=== PATIENT | male | born 1940 | race Hispanic/Latino ===

== ENCOUNTER 2022-07-10 00:28 | Observation (INO) | payer OTHER ==
--- OUTSIDE RECORDS SUMMARY | 2022-07-10 00:32 | XMS REPORT | Continuity of Care Document ---
:1940 Author Organization [facility] t Address [address] [place] [address] Care Team Providers Name Role Phone Sammy Schwartz Attending Clinician Unavailable Parvez Blackburn Attending Clinician Unavailable Payers Payer Name Policy Type Policy Number Effective Date Expiration Date S ten [facility] [employer] 1 [id number] 2020 Common TRS/ERS MCR PPO 00:00:00 [facility] - [facility] Problems Condition Condition Condition Status Onset Resolution Last Treating Co mments Source Name Details Category Date Date Treatment Clinician Date [id number] Paroxysmal Problem Co mmon atrial Spirit fibrillati - [facility] on [facility] [id number] 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 unspecifie St d cause, [facility] unspecifie [facility] laterality [id number] Upper back Problem Co mmon pain on [facility] right side [facility] [id number] Neck pain Problem Comm on [facility] Fall, Problem Common initial [facility] encounter [facility] Allergies, Adverse Reactions, Alerts This patient has no known allergies or adverse reactions. Social History Social Habit Start Date Stop Date Quantity Comments Source History of Tobacco Use Co mmon [facility] Sex Assigned At Com mon [facility] Smoking Status Start Date Stop Date Source Never Smoker Common [facility] Medications Ordered Filled Start Stop Current Ordering Indication Dosage Frequency Signature Comments Components Source Medication Medication Date Date Medication? Clinician (SIG) Name Name Toradol Toradol No 30mg Common (Ketorolac) (Ketorolac) 5-07 S pirit 00:00: - [facility] Toradol Toradol No 30mg Common (Ketorolac) (Ketorolac) 5-07 S pirit 00:: [facility] Toradol Toradol No 30mg Common (Ketorolac) (Ketorolac) 5-07 S pirit 00:00: - [facility] Francine Aleamaury No Aleve QUEtiapine QUEtiapine No QUEtiapine Fumarate 25 Fumarate 25 Fumarate MG MG 25 MG Metoprolol Metoprolol No Metoprolol Tartrate 25 Tartrate 25 Tartrate MG MG 25 MG Allopurinol Allopurinol No Allopurino 100 MG 100 MG l 100 MG Metoprolol Metoprolol No 1{table BID Metoprolol Tartrate 25 Tartrate 25 t_with_ Tartrate MG MG food} 25 MG Omeprazole Omeprazole No QD Omeprazole 40 MG 40 MG 40 MG Centrum Centrum No Centrum Silver Silver Silver Metoprolol Metoprolol No 1{table QD Metoprolol Succinate Succinate t} Succinate ER 25 MG ER 25 MG ER 25 MG Amiodarone Amiodarone No 1{table QD Amiodarone HCl 200 MG HCl 200 MG t} HCl 200 MG Aleve Aleve No Aleve QUEtiapine QUEtiapine No 1{table QD QUEtiapine Fumarate 25 Fumarate 25 t_at_be Fumarate MG MG dtime} 25 MG Allopurinol Allopurinol No 1{table QD Allopurino 100 MG 100 MG t} l 100 MG Atorvastati Atorvastati No 1{table QD Atorvastat n Calcium n Calcium t} in Calcium 20 MG 20 MG 20 MG Omeprazole Omeprazole No QD Omeprazole 40 MG 40 MG 40 MG Centrum Centrum No Centrum Silver Silver Silver Metoprolol Metoprolol No 1{table QD Metoprolol Succinate Succinate t} Succinate ER 25 MG ER 25 MG ER 25 MG Amiodarone Amiodarone No 1{table QD Amiodarone HCl 200 MG HCl 200 MG t} HCl 200 MG Aleve Aleve No Aleve QUEtiapine QUEtiapine No 1{table QD QUEtiapine Fumarate 25 Fumarate 25 t_at_be Fumarate MG MG dtime} 25 MG Allopurinol Allopurinol No 1{table QD Allopurino 100 MG 100 MG t} l 100 MG Atorvastati Atorvastati No 1{table QD Atorvastat n Calcium n Calcium t} in Calcium 20 MG 20 MG 20 MG Metoprolol Metoprolol No 1{table BID Metoprolol Tartrate 25 Tartrate 25 t_with_ Tartrate MG MG food} 25 MG QUEtiapine QUEtiapine No 1{table QD QUEtiapine Fumarate 25 Fumarate 25 t_at_be Fumarate MG MG dtime} 25 MG QUEtiapine QUEtiapine No QUEtiapine Fumarate 25 Fumarate 25 Fumarate MG MG 25 MG Allopurinol Allopurinol No Allopurino 100 MG 100 MG l 100 MG Metoprolol Metoprolol No Metoprolol Tartrate 25 Tartrate 25 Tartrate MG MG 25 MG Lisinopril Lisinopril No 1{table QD Lisinopril 10 MG 10 MG t} 10 MG Aleve Aleve No Aleve Lovastatin Lovastatin No Lovastatin 20 MG 20 MG 20 MG Lovastatin Lovastatin No QD Lovastatin 20 MG 20 MG 20 MG Lisinopril Lisinopril No Lisinopril 10 MG 10 MG 10 MG Centrum Centrum No Centrum Silver Silver Silver Allopurinol Allopurinol No 1{table QD Allopurino 100 MG 100 MG t} l 100 MG Aspirin 81 Aspirin 81 No 1{table QD Aspirin 81 81 MG 81 MG t} 81 MG Metoprolol Metoprolol No 1{table BID Metoprolol Tartrate 25 Tartrate 25 t_with_ Tartrate MG MG food} 25 MG QUEtiapine QUEtiapine No 1{table QD QUEtiapine Fumarate 25 Fumarate 25 t_at_be Fumarate MG MG dtime} 25 MG QUEtiapine QUEtiapine No QUEtiapine Fumarate 25 Fumarate 25 Fumarate MG MG 25 MG Allopurinol Allopurinol No Allopurino 100 MG 100 MG l 100 MG Metoprolol Metoprolol No Metoprolol Tartrate 25 Tartrate 25 Tartrate MG MG 25 MG Lisinopril Lisinopril No 1{table QD Lisinopril 10 MG 10 MG t} 10 MG Aleve Aleve No Aleve Lovastatin Lovastatin No Lovastatin 20 MG 20 MG 20 MG Lovastatin Lovastatin No QD Lovastatin 20 MG 20 MG 20 MG Lisinopril Lisinopril No Lisinopril 10 MG 10 MG 10 MG Centrum Centrum No Centrum Silver Silver Silver Allopurinol Allopurinol No 1{table QD Allopurino 100 MG 100 MG t} l 100 MG Aspirin 81 Aspirin 81 No 1{table QD Aspirin 81 81 MG 81 MG t} 81 MG Lovastatin Lovastatin No Lovastatin 20 MG 20 MG 20 MG Centrum Centrum No Centrum Silver Silver Silver Allopurinol Allopurinol No 1{table QD Allopurino 100 MG 100 MG t} l 100 MG Lisinopril Lisinopril No Lisinopril 10 MG 10 MG 10 MG Aspirin 81 Aspirin 81 No 1{table QD Aspirin 81 81 MG 81 MG t} 81 MG QUEtiapine QUEtiapine No 1{table QD QUEtiapine Fumarate 25 Fumarate 25 t_at_be Fumarate MG MG dtime} 25 MG Eliquis 2.5 Eliquis 2.5 2022- No Eliquis mg 2.5 mg mg 2.5 mg 07-05 2.5 mg 2.5 00:00 mg :00 Eliquis 2.5 Eliquis 2.5 2022- No Eliquis mg 2.5 mg mg 2.5 mg 07-05 2.5 mg 2.5 00:00 mg :00 Vital Signs Vital Name Observation Time Observation Value Comments Source height 2022-04-06 13:00:00 68 [in_i] Common S pirit - [facility] weight 2022-04-06 13:00:00 166.8 [lb_av] Common [facility] temperature 2022-04-06 13:00:00 97.7 [degF] Common [facility] bmi 2022-04-06 13:00:00 25.36 kg/m2 Common [facility] oximetry 2022-04-06 13:00:00 96 % Common [facility] respiratory rate 2022-04-06 13:00:00 16 /min Comm on [facility] blood pressure 2022-04-06 13:00:00 135 mm[Hg] Common [facility] - systolic [facility] blood pressure 2022-04-06 13:00:00 72 mm[Hg] Common [facility] - diastolic [facility] height 2021-07-30 13:40:00 68 [in_i] Common [facility] weight 2021-07-30 13:40:00 173.0 [lb_av] [facility] temperature 2021-07-30 13:40:00 97.5 [degF] Common [facility] bmi 2021-07-30 13:40:00 26.3 kg/m2 [facility] oximetry 2021-07-30 13:40:00 98 % [facility] respiratory rate 2021-07-30 13:40:00 17 /min Comm on [facility] blood pressure 2021-07-30 13:40:00 138 mm[Hg] Common [facility] - systolic [facility] blood pressure 2021-07-30 13:40:00 63 mm[Hg] Common [facility] - diastolic [facility] height 2021-07-30 13:00:00 68 [in_i] [facility] weight 2021-07-30 13:00:00 173.0 [lb_av] [facility] temperature 2021-07-30 13:00:00 97.5 [degF] [facility] 2021-07-30 13:00:00 26.3 kg/m2 Common S [facility] oximetry 2021-07-30 13:00:00 98 % Common S [facility] respiratory rate 2021-07-30 13:00:00 17 /min Comm on [facility] blood pressure 2021-07-30 13:00:00 138 mm[Hg] Common [facility] - systolic [facility] blood pressure 2021-07-30 13:00:00 63 mm[Hg] Common [facility] - diastolic [facility] Procedures This patient has no known procedures. Encounters Start End Encounter Admission Attending Care Care Encounter Source Date/Time Date/Time Type Type Clinicians Facility Department ID 2022-07-27 Inpatient MARLA Schwartz [id number] [facility] 09:30:00 Sammy 20 [facility] 2021-07-30 Outpatient Blackburn, STLMLC STLMLC [id number] Common 14:39:19 Parvez [facility] 2021-07-30 Outpatient Blackburn, STLMLC STLMLC [id number] Common 13:45:10 Parvez [id number] [facility] 2021-07-30 Outpatient Blackburn, STLMLC STLMLC [id number] Common 13:11:28 Parvez [id number] [facility] 2021-07-30 Outpatient Blackburn, STLMLC STLMLC [id number] Common 13:06:53 Parvez [id number] [facility] 2021-07-30 Outpatient Blackburn, STLMLC STLMLC [id number] Common 13:03:19 Parvez [id number] [facility] 2021-07-30 Outpatient Blackburn, STLMLC STLMLC [id number] Common 13:02:01 Parvez [facility] 2021-07-30 Outpatient Blackburn, STLMLC STLMLC [id number] Common 12:37:52 Parvez [id number] [facility] 2021-07-30 Outpatient Blackburn, STLMLC STLMLC [id number] Common 12:36:44 Parvez [id number] [facility] 2021-07-30 Outpatient Blackburn, STLMLC STLMLC [id number] Common 12:29:41 Parvez [id number] [facility] 2021-07-30 Outpatient Blackburn, STLMLC STLMLC [id number] Common 12:29:32 Parvez [id number] [facility] 2022-04-06 2022-04-06 OFFICE STLMLC STLMLC [id number] Co mmon 00:00:00 00:00:00 VISIT [facility] PT - [facility]I [address] 2022-03-02 2022-03-02 (TEL) STLMLC STLMLC [id number] Co mmon 00:00:00 00:00:00 [facility] 2021-07-30 2021-07-30 OFFICE STLMLC STLMLC [id number] Co mmon 00:00:00 00:00:00 VISIT [facility] PT - [facility]I [address] 2021-07-30 2021-07-30 SUB ANNUAL STLMLC STLMLC [id number] Common 00:00:00 00:00:00 MCR [facility] WELLNESS [facility] VISIT [facility] 2021-03-12 2021-03-12 Outpatient STLMLC STLMLC [id number] Common 00:00:00 00:00:00 [facility] 2020-12-10 2020-12-10 Outpatient STLMLC STLMLC [id number] Common 00:00:00 00:00:00 [facility] 2020-11-21 2020-11-21 Outpatient STLMLC STLMLC [id number] Common 00:00:00 00:00:00 [facility] 2020-11-08 2020-11-08 Outpatient STLMLC STLMLC [id number] Common 00:00:00 00:00:00 [facility] 2020-09-10 2020-09-10 Outpatient STLMLC STLMLC [id number] Common 00:00:00 00:00:00 [facility] 2020-09-10 2020-09-10 Outpatient STLMLC STLMLC [id number] Common 00:00:00 00:00:00 [facility] 2020-08-12 2020-08-12 Outpatient [facility] [id number] Common 00:00:00 00:00:00 [facility] Results This patient has no known results.
[2022-07-10] MEDS ORDERED: NA CHLORIDE 0.9% 500 ML ONE ×2 (00:54→01:57)
[2022-07-10 01:08] LABS: Hematocrit 37.9 % (39.6-49.0); Lymphocytes % 11.8 % (15.3-44.8); MCV 90.5 fL (80-100); MPV 8.3 fL (7.6-11.3); RBC Red Blood Cell Count 4.19 M/uL (4.33-5.43)
[2022-07-10 01:17] LABS: Protime INR 1.51
[2022-07-10 01:25] LABS: Potassium 3.5 mmol/L (3.5-5.1)
[2022-07-10] MEDS ORDERED: ASPIRIN 81 MG CHEWABLE TABLET ONE (01:42)
[2022-07-10] MEDS ORDERED: MECLIZINE HCL 12.5 MG TAB ONE (01:42)
[2022-07-10] MEDS ORDERED: FOLIC ACID 5 MG/ML VIAL ONE (01:43)
[2022-07-10 02:11] LABS: SARS-CoV-2 Antigen Rapid Res Negative (Negative)
--- NOTE | 2022-07-10 02:45 | ER ---
Nurse's Notes [facility] Name: Adam Stanford Age: 82 yrs Sex: Male : 1940 Arrival Date: 07/10/2022 Time: 00:32 Bed 2 Private MD: Diagnosis: Dizziness and giddiness;Slurred speech Presentation: 07/10 00:30 Chief complaint: EMS states: Pt has had a history of a stroke and had gotten up to go kd3 to the bathroom. When he was in the restroom he got dizzy and because of his previous stroke, he ot nervous and called 911. Pt has facial droop and slurred speech from a previous stroke. 00:30 Coronavirus screen: Vaccine status: Patient reports receiving the 2nd dose of the covid kd3 vaccine. Ebola Screen: No symptoms or risks identified at this time. Initial Sepsis Screen: Does the patient meet any 2 criteria? No. Patient's initial sepsis screen is negative. Does the patient have a suspected source of infection? No. Patient's initial sepsis screen is negative. Risk Assessment: Do you want to hurt yourself or someone else? Patient reports no desire to harm self or others. Onset of symptoms was July 10, 2022. 00:30 Method Of Arrival: EMS: [facility] kd3 00:30 Acuity: DIMITRI 3 kd3 Triage Assessment: 00:30 General: Appears in no apparent distress. Behavior is calm, cooperative. Pain: Denies kd3 pain. Neuro: Level of Consciousness is awake, alert, obeys commands, Oriented to person, place, time, situation. Respiratory: Airway is patent Trachea midline Respiratory effort is even, unlabored, Respiratory pattern is regular, symmetrical. Historical: - PMHx: 10:42 CVA; AFIB; HTN; hb - PSHx: 10:42 CABG; hb - Immunization history:: Adult Immunizations up to date. - Social history:: Smoking status: unknown. Screenin:32 [facility] ED Fall Risk Assessment (Adult) History of falling in the last 3 months, kd3 including since admission No falls in past 3 months (0 pts) Confusion or Disorientation No (0 pts) Intoxicated or Sedated No (0 pts) Impaired Gait No (0 pts) Mobility Assist Device Used No (0 pt) Altered Elimination No (0 pt) Score/Fall Risk Level 0 - 2 = Low Risk. Abuse screen: Denies threats or abuse. Denies injuries from another. Nutritional screening: No deficits noted. Tuberculosis screening: No symptoms or risk factors identified. 00:58 Patient has been NPO before screening. The patient is alert, able to follow commands. jb4 The patient does not exhibit slurred or garbled speech The patient is not exhibiting difficulty speaking. The patient does not exhibit difficulty understanding words. The patient is able to swallow own secretions with no drooling or need for suction. Patient tolerated one teaspoon of water. No drooling, immediate coughing, gurgling, or clearing of the throat was noted. The patient tolerated 90mL of water. No drooling, immediate coughing, gurgling, or clearing of the throat was noted. The patient passed the bedside swallow screening. Oral medications may be given as ordered. Contact Physician for further diet orders. Provider notified of bedside swallow screening results: Jonathan VALDES. Assessment: 00:40 General: see triage . kd3 00:41 General: code stroke called . kd3 01:24 Reassessment: Patient appears in no apparent distress at this time. Patient and/or jb4 family updated on plan of care and expected duration. Pain level reassessed. Patient is alert, oriented x 3, equal unlabored respirations, skin warm/dry/pink. provider at the bedside. 02:29 Reassessment: Patient appears in no apparent distress at this time. Patient and/or jb4 family updated on plan of care and expected duration. Pain level reassessed. Patient is alert, oriented x 3, equal unlabored respirations, skin warm/dry/pink. 03:30 Reassessment: Patient appears in no apparent distress at this time. Patient and/or jb4 family updated on plan of care and expected duration. Pain level reassessed. Patient is alert, oriented x 3, equal unlabored respirations, skin warm/dry/pink. Vital Signs: 00:30 BP 124 / 49; Pulse 53; Resp 18; Temp 98.5(TE); Pulse Ox 96% on R/A; Weight 79.83 kg (M);kd3 01:24 BP 106 / 57; Pulse 44; Resp 16; Pulse Ox 98% on R/A; jb4 02:29 BP 102 / 41; Pulse 48; Resp 16; Pulse Ox 97% on R/A; jb4 03:30 BP 132 / 55; Pulse 44; Resp 16; Pulse Ox 96% on R/A; jb4 NIH Stroke Scale Scores: 00:32 NIHSS Score: 0 kd3 01:29 NIHSS Score: 3 cp ED Course: 00:30 Arm band placed on right wrist. kd3 00:32 Patient arrived in ED. wm 00:33 Breanne Carrera, BERTA is Primary Nurse. kd3 00:36 Jonathan Kumari PA is PHCP. cp 00:36 Linda Amin MD is Attending Physician. cp 00:38 Triage completed. kd3 00:40 Patient has correct armband on for positive identification. Placed in gown. Call light kd3 in reach. 00:40 No provider procedures requiring assistance completed. Maintain EMS IV. Dressing kd3 intact. Good blood return noted. Site clean \T\ dry. Gauge \T\ site: 18 g left A/C. 00:53 CT Stroke Brain w/o Contrast In Process Unspecified. EDMS 00:59 Basic Metabolic Panel Sent. kd3 00:59 CBC with Diff Sent. kd3 00:59 High Sensitivity Troponin Sent. kd3 00:59 Magnesium Sent. kd3 00:59 Protime (+inr) Sent. kd3 00:59 Ptt, Activated Sent. kd3 01:03 Stroke CXR 1 View In Process Unspecified. EDMS 02:08 CT Head Angio In Process Unspecified. EDMS 02:08 CT Neck Angio In Process Unspecified. EDMS 02:43 Efren Hameed MD is Hospitalizing Provider. cp 04:22 Patient admitted, IV remains in place. jb4 Administered Medications: 00:55 Drug: NS 0.9% 500 ml Route: IV; Rate: 250 bolus; Site: left antecubital; jb4 04:00 Follow up: Response: No adverse reaction; IV Status: Completed infusion; IV Intake: jb4 500ml 01:45 Drug: Aspirin Chewable Tablet 81 mg Route: PO; jb4 04:20 Follow up: Response: No adverse reaction jb4 01:45 Drug: foLIC Acid 1 mg Route: IVPB; Site: left antecubital; jb4 02:00 Follow up: Response: No adverse reaction; IV Status: Completed infusion jb4 01:45 Drug: Meclizine 25 mg Route: PO; jb4 04:21 Follow up: Response: No adverse reaction; Marked relief of symptoms jb4 02:19 Drug: NS 0.9% 500 ml Route: IV; Rate: bolus; Site: left antecubital; jb4 03:00 Follow up: Response: No adverse reaction; IV Status: Completed infusion; IV Intake: jb4 500ml Medication: 00:40 VIS not applicable for this client. kd3 Intake: 03:00 IV: 500ml; Total: 500ml. jb4 04:00 IV: 500ml; Total: 1000ml. jb4 Outcome: 02:44 Decision to Hospitalize by Provider. cp 04:22 Admitted to ER Hold. [facility] for further documentation. jb4 04:22 Condition: stable 04:22 Discharge instructions given to patient, Instructed on the need for admit, Demonstrated understanding of instructions. 13:55 Patient left the ED. ph NIH Stroke Scale - NIH Stroke Score Date: 07/10/2022 Time: 00:32 Total Score = 0 1a. Level of Consciousness (LOC) - 0(Alert) 1b. Level of Consciousness (LOC) (Month \T\ Age) - 0(Both) 1c. LOC Commands (Open \T\ Closes Eyes/Art Objects Salesperson) - 0(Both) 2. Best Gaze (Lateral Gaze Paresis) - 0(Normal) 3. Visual Field Loss - 0(No visual loss) 4. Facial Palsy - 0(Normal) 5a. Left Arm: Motor (10-second hold) - 0(No drift) 5b. Right Arm: Motor (10-second hold) - 0(No drift) 6a. Left Leg: Motor (5-second hold - always test supine) - 0(No drift) 6b. Right Leg: Motor (5-second hold - always test supine) - 0(No drift) 7. Limb Ataxia (finger/nose \T\ heel/bains - test with eyes open) - 0(Absent) 8. Sensory Loss (pinprick arms/legs/face) - 0(Normal) 9. Best Language: Aphasia (description/naming/reading) - 0(No aphasia) 10. Dysarthria (speech clarity - read or repeat words) - 0(Normal) 11. Extinction and Inattention (visual/tactile/auditory/spatial/personal) - 0(No abnormality) Initials: kd3 NIH Stroke Scale - NIH Stroke Score Date: 07/10/2022 Time: :29 Total Score = 3 1a. Level of Consciousness (LOC) - 0(Alert) 1b. Level of Consciousness (LOC) (Month \T\ Age) - 0(Both) 1c. LOC Commands (Open \T\ Closes Eyes/Art Objects Salesperson) - 0(Both) 2. Best Gaze (Lateral Gaze Paresis) - 0(Normal) 3. Visual Field Loss - 0(No visual loss) 4. Facial Palsy - 1(Minor Paralysis) 5a. Left Arm: Motor (10-second hold) - 0(No drift) 5b. Right Arm: Motor (10-second hold) - 0(No drift) 6a. Left Leg: Motor (5-second hold - always test supine) - 0(No drift) 6b. Right Leg: Motor (5-second hold - always test supine) - 0(No drift) 7. Limb Ataxia (finger/nose \T\ heel/bains - test with eyes open) - 0(Absent) 8. Sensory Loss (pinprick arms/legs/face) - 0(Normal) 9. Best Language: Aphasia (description/naming/reading) - 1(Mild to moderate aphasia) 10. Dysarthria (speech clarity - read or repeat words) - 1(Mild to Moderate) 11. Extinction and Inattention (visual/tactile/auditory/spatial/personal) - 0(No abnormality) Initials: cp Signatures: Dispatcher [employer] Sneha Rooney RN RN ph Page, Corey, PA PA cp Irene Bellamy RN RN hb Bryson, James, RN RN jb4 Tammie Claros Kyli, RN RN kd3 Corrections: (The following items were deleted from the chart) 10:43 10:42 PSHx: CVA - LEFT FACIAL WEAKNESS; hb hb
--- NOTE | 2022-07-10 02:45 | EDPHYS ---
Physician Documentation [facility] Name: Adam Stanford Age: 82 yrs Sex: Male : 1940 Arrival Date: 07/10/2022 Time: 00:32 Bed 2 Private MD: ED Physician Linda Amin HPI: 07/10 00:45 This 82 yrs old Male presents to ER via EMS with complaints of Dizziness. cp 00:45 The patient presents with feeling off balance. Onset: The symptoms/episode cp began/occurred tonight at 2330. 00:45 The patient's problem is reported as slurred speech. cp 00:45 Duration: The episode is continuous. Associated signs and symptoms: Pertinent cp negatives: abdominal pain, chest pain, confusion, fever. Patient's baseline: Neuro: alert and fully oriented, Motor: left-sided facial droop, Ambulation: walks without assistance, Speech: slow, The patient has a previous history of CVA. Patient reports dizziness and unsteadiness started at 2330 tonight. Historical: - PMHx: 10:42 CVA; AFIB; HTN; hb - PSHx: 10:42 CABG; hb - Immunization history:: Adult Immunizations up to date. - Social history:: Smoking status: unknown. ROS: 00:46 Cardiovascular: Negative for chest pain, edema, palpitations. cp 00:46 Respiratory: Negative for cough, shortness of breath, wheezing. 00:46 Neuro: Positive for dizziness, speech changes, Negative for altered mental status, loss of consciousness, syncope, weakness. 00:46 Constitutional: Negative for body aches, chills, fever, poor PO intake. cp 00:46 ENT: Negative for drainage from ear(s), ear pain, sore throat, difficulty swallowing, difficulty handling secretions. 00:46 Abdomen/GI: Negative for abdominal pain, nausea and vomiting, diarrhea, constipation. 00:46 Eyes: Negative for injury, pain, redness, and discharge. cp 00:46 All other systems are negative. Exam: 00:45 Constitutional: The patient appears in no acute distress, alert, awake, cp non-diaphoretic, non-toxic, well developed, well nourished. 00:45 Head/Face: Normocephalic, atraumatic. cp 00:45 Eyes: Periorbital structures: appear normal, Pupils: equal, round, and reactive to cp light and accomodation, Extraocular movements: intact throughout, Conjunctiva: normal, no exudate, no injection, Sclera: no appreciated abnormality, Lids and lashes: appear normal, bilaterally. 00:45 ENT: External ear(s): are unremarkable, Nose: is normal, Mouth: Oral mucosa: moist, left lower lip droop, Posterior pharynx: Airway: no evidence of obstruction, patent, erythema, is not appreciated, exudate, is not appreciated. 00:45 Neck: ROM/movement: is normal, is supple, without pain, no range of motions limitations. 00:45 Chest/axilla: Inspection: normal. 00:45 Cardiovascular: Rate: bradycardic, Rhythm: regular, Edema: is not appreciated, JVD: is not appreciated. 00:45 Respiratory: the patient does not display signs of respiratory distress, Respirations: normal, no use of accessory muscles, no retractions, labored breathing, is not present, Breath sounds: are clear throughout, no decreased breath sounds, no stridor, no wheezing. 00:45 Abdomen/GI: Inspection: abdomen appears normal, Palpation: abdomen is soft and cp non-tender, in all quadrants. 00:45 Back: pain, is absent, ROM is normal. 00:45 Neuro: Orientation: to person, place \T\ time. Mentation: able to follow commands, slow to respond, Cerebellar function: Romberg testing is negative, normal finger to nose testing, heel to bains testing is normal, Motor: moves all fours, strength is normal, Sensation: no obvious gross deficits. 01:00 ECG was reviewed by the Attending Physician. cp 01:16 Radiologist reports: no acute findings on head CT cp Vital Signs: 00:30 BP 124 / 49; Pulse 53; Resp 18; Temp 98.5(TE); Pulse Ox 96% on R/A; Weight 79.83 kg (M);kd3 01:24 BP 106 / 57; Pulse 44; Resp 16; Pulse Ox 98% on R/A; jb4 02:29 BP 102 / 41; Pulse 48; Resp 16; Pulse Ox 97% on R/A; jb4 03:30 BP 132 / 55; Pulse 44; Resp 16; Pulse Ox 96% on R/A; jb4 NIH Stroke Scale Scores: 00:32 NIHSS Score: 0 kd3 01:29 NIHSS Score: 3 cp MDM: 00:55 Patient medically screened. cp 00:55 ED course: Patient is not a candidate for tpa. Medication list includes Eliquis 2.5 mg cp bid with last dose at 1900. 02:45 Data reviewed: vital signs, nurses notes, lab test result(s), EKG, radiologic studies, cp CT scan, plain films. 02:45 Differential diagnosis: CVA, TIA, metabolic disorder, drug effects, acute LA, cp hypotension, bradycardia. Test interpretation: by ED physician or midlevel provider: ECG, plain radiologic studies. Counseling: I had a detailed discussion with the patient and/or guardian regarding: the historical points, exam findings, and any diagnostic results supporting the discharge/admit diagnosis, lab results, radiology results, the need for further work-up and treatment in the hospital. Response to treatment: the patient's symptoms have mildly improved after treatment. 07/10 00:43 Order name: Basic Metabolic Panel; Complete Time: 01:28 cp 07/10 01:28 Interpretation: Normal except: GLUC 143; CRE 1.33; GFR 53. cp 07/10 00:43 Order name: CBC with Diff; Complete Time: 01:16 cp 07/10 01:28 Interpretation: Normal except: RBC 4.19; HGB 12.7; HCT 37.9; RDW 15.4; GHAZAL% 77.1; LYM% cp 11.8. 07/10 00:43 Order name: High Sensitivity Troponin; Complete Time: 01:28 cp 07/10 01:28 Interpretation: Reviewed. cp 07/10 00:43 Order name: Magnesium; Complete Time: 01:28 cp 07/10 00:43 Order name: Protime (+inr); Complete Time: 01:21 cp 07/10 01:28 Interpretation: Reviewed. cp 07/10 00:43 Order name: Ptt, Activated; Complete Time: :21 cp 07/10 00:43 Order name: Urine Microscopic Only cp 07/10 01:06 Order name: SARS RAPID; Complete Time: 02:18 cp 07/10 02:19 Interpretation: Reviewed. cp 07/10 01:07 Order name: Glucose, Ancillary Testing; Complete Time: 01:16 EDMS 07/10 02:19 Interpretation: GLUC,ANCIL 126; Reviewed. cp 07/10 04:01 Order name: Urine Dipstick-Ancillary EDMS 07/10 05:05 Order name: Magnesium EDMS 07/10 05:19 Order name: Troponin High Sensitivity EDMS 07/10 05:19 Order name: T4 Free EDMS 07/10 05:19 Order name: Thyroid Stimulating Hormone EDMS 07/10 00:43 Order name: CT Stroke Brain w/o Contrast cp 07/10 00:43 Order name: Stroke CXR 1 View cp 07/10 00:43 Order name: EKG; Complete Time: 00:44 cp 07/10 00:43 Order name: Accucheck; Complete Time: 00:55 cp 07/10 00:43 Order name: Cardiac monitoring; Complete Time: 00:48 cp 07/10 00:43 Order name: EKG - Nurse/Tech; Complete Time: 00:55 cp 07/10 00:43 Order name: IV Saline Lock; Complete Time: 00:55 cp 07/10 01:28 Order name: CT Head Angio cp 07/10 01:28 Order name: CT Neck Angio cp 07/10 07:33 Order name: US EDMS 07/10 11:38 Order name: Troponin High Sensitivity EDMS 07/10 00:43 Order name: Labs collected and sent; Complete Time: 00:59 cp 07/10 00:43 Order name: NPO; Complete Time: 00:48 cp 07/10 00:43 Order name: O2 Per Protocol; Complete Time: 00:45 cp 07/10 00:43 Order name: O2 Sat Monitoring; Complete Time: 00:45 cp 07/10 00:43 Order name: Stroke Swallow Screen; Complete Time: 00:58 cp 07/10 00:43 Order name: Urine Dipstick-Ancillary (obtain specimen); Complete Time: 04:20 cp EC:00 Rate is 53 beats/min. Rhythm is regular. GA interval is prolonged at 238 msec. QRS cp interval is normal. QT interval is normal. Interpreted by me. Reviewed by me. Administered Medications: 00:55 Drug: NS 0.9% 500 ml Route: IV; Rate: 250 bolus; Site: left antecubital; jb4 04:00 Follow up: Response: No adverse reaction; IV Status: Completed infusion; IV Intake: jb4 500ml 01:45 Drug: Aspirin Chewable Tablet 81 mg Route: PO; jb4 04:20 Follow up: Response: No adverse reaction 4 01:45 Drug: foLIC Acid 1 mg Route: IVPB; Site: left antecubital; jb4 02:00 Follow up: Response: No adverse reaction; IV Status: Completed infusion 4 01:45 Drug: Meclizine 25 mg Route: PO; jb4 04:21 Follow up: Response: No adverse reaction; Marked relief of symptoms 4 02:19 Drug: NS 0.9% 500 ml Route: IV; Rate: bolus; Site: left antecubital; jb4 03:00 Follow up: Response: No adverse reaction; IV Status: Completed infusion; IV Intake: jb4 500ml Disposition: 19:14 STAFF ATTESTATION: The patient's history, exam findings, diagnostics and a summary of sd2 any interventions or procedures was reviewed in detail with the ED RAEGAN. I confirm the diagnosis as documented by the RAEGAN and I agree with the care plan articulated in the disposition section with regards to our discussion of the patient's case. Linda Amin MD. Disposition Summary: 07/10/22 02:44 Hospitalization Ordered Hospitalization Status: Observation cp Provider: Efren Hameed cp Condition: Stable cp Problem: new cp Symptoms: have improved cp Bed/Room Type: Standard cp Location: Telemetry/MedSurg (observation)(07/10/22 11:55) eb Room Assignment: 426(07/10/22 11:55) eb Diagnosis - Dizziness and giddiness cp - Slurred speech cp Forms: - Medication Reconciliation Form cp - SBAR form cp NIH Stroke Scale - NIH Stroke Score Date: 07/10/2022 Time: 00:32 Total Score = 0 1a. Level of Consciousness (LOC) - 0(Alert) 1b. Level of Consciousness (LOC) (Month \T\ Age) - 0(Both) 1c. LOC Commands (Open \T\ Closes Eyes/Personnel Research Psychologist) - 0(Both) 2. Best Gaze (Lateral Gaze Paresis) - 0(Normal) 3. Visual Field Loss - 0(No visual loss) 4. Facial Palsy - 0(Normal) 5a. Left Arm: Motor (10-second hold) - 0(No drift) 5b. Right Arm: Motor (10-second hold) - 0(No drift) 6a. Left Leg: Motor (5-second hold - always test supine) - 0(No drift) 6b. Right Leg: Motor (5-second hold - always test supine) - 0(No drift) 7. Limb Ataxia (finger/nose \T\ heel/bains - test with eyes open) - 0(Absent) 8. Sensory Loss (pinprick arms/legs/face) - 0(Normal) 9. Best Language: Aphasia (description/naming/reading) - 0(No aphasia) 10. Dysarthria (speech clarity - read or repeat words) - 0(Normal) 11. Extinction and Inattention (visual/tactile/auditory/spatial/personal) - 0(No abnormality) Initials: kd3 NIH Stroke Scale - NIH Stroke Score Date: 07/10/2022 Time: Total Score = 3 1a. Level of Consciousness (LOC) - 0(Alert) 1b. Level of Consciousness (LOC) (Month \T\ Age) - 0(Both) 1c. LOC Commands (Open \T\ Closes Eyes/Personnel Research Psychologist) - 0(Both) 2. Best Gaze (Lateral Gaze Paresis) - 0(Normal) 3. Visual Field Loss - 0(No visual loss) 4. Facial Palsy - 1(Minor Paralysis) 5a. Left Arm: Motor (10-second hold) - 0(No drift) 5b. Right Arm: Motor (10-second hold) - 0(No drift) 6a. Left Leg: Motor (5-second hold - always test supine) - 0(No drift) 6b. Right Leg: Motor (5-second hold - always test supine) - 0(No drift) 7. Limb Ataxia (finger/nose \T\ heel/bains - test with eyes open) - 0(Absent) 8. Sensory Loss (pinprick arms/legs/face) - 0(Normal) 9. Best Language: Aphasia (description/naming/reading) - 1(Mild to moderate aphasia) 10. Dysarthria (speech clarity - read or repeat words) - 1(Mild to Moderate) 11. Extinction and Inattention (visual/tactile/auditory/spatial/personal) - 0(No abnormality) Initials: cp Signatures: Dispatcher [employer] EDMS Segundo King, NOE-C VP SITE-Cla1 Jonathan Kumari PA PA cp Garcia, Cindy, RN RN cg Irene Bellamy RN RN Harshad Mina RN RN jb4 Princess Ohara Kyli, RN RN 3 Linda Amin MD MD sd2 Corrections: (The following items were deleted from the chart) 01:30 00:47 NIHSS Score: 4 cp cp 03:01 02:44 Telemetry/MedSurg (observation) cp cg 03:01 02:44 cp cg 10:43 10:42 PSHx: CVA - LEFT FACIAL WEAKNESS; hb 11:55 03:01 [facility] ER HOLD cg eb 11:55 03:01 ERHOLD- cg eb 22:21 00:46 Neuro: Positive for dizziness, Negative for altered mental status, loss cp of consciousness, syncope, weakness, cp
--- NOTE | 2022-07-10 03:21 | P.HP ---
Certification for Inpatient Patient admitted to: Observation With expected LOS: <2 Midnights Patient will require the following post-hospital care: None Practitioner: I am a practitioner with admitting privileges, knowledge of patient current condition, hospital course, and medical plan of care. Services: Services provided to patient in accordance with Admission requirements found in Title 42 Section 412.3 of the Code of Federal Regulations <Segundo King - Last Filed: 07/10/22 03:15> Patient History Date of Service: 07/10/22 Primary Care Provider: Dr. 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 He reports after getting up from the toilet he felt very lightheaded like he was going to pass out and became diaphoretic. He was brought to the Emergency Department for evaluation, code stroke was called as p atbenji felt dizzy had a history of previous CVA. He was evaluated in the emergency department his labs were significant for creatinine 1.33 GFR 53 glucose 143. Patient with previous left-sided facial weakness from his last stroke in 2021 he denies any new or changing neurological symptoms or deficits NIH is 2 given his lower facial weakness which is at his baseline. He was not a candidate for TNKase given his use of anticoagulationEliquis and lack of new focal neurological deficits. CT head without contrast was negative for acute findings CT angio the head and neck were negative for large vessel occlusion. Chest x-ray was unremarkable. It was noted that patient was bradycardic upon arrival to the emergency department with heart rate between 35 and 45, blood pressure was also soft in the 90s systolic. Patient denies any chest pain and reports at this time his dizziness has resolved. It was noted that patient is on both metoprolol succinate 25 mg daily as well as amiodarone, EKG showed sinus bradycardia first-degree block. Initial high-sensitivity troponin negative. Will admit for further evaluation and management of dizziness, bradycardia, CVA rule out. - Past Medical/Surgical History -: A. 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 - Family History Mother -: Diabetes Brother -: Cancer Father -: Cancer - Social History Smoking Status: Never smoker Alcohol use: No CD- Drugs: No Caffeine use: Yes Place of Residence: Home <Segundo King - Last Filed: 07/10/22 03:15> Date of Service: 07/10/22 <Ethan Sylvester - Last Filed: 07/10/22 23:25> Review of Systems 10-point ROS is otherwise unremarkable Cardiovascular: Light Headedness Neurological: As per HPI <Segundo King - Last Filed: 07/10/22 03:15> Physical Examination - Physical Exam General: Alert, In no apparent distress, Oriented x3 HEENT: Atraumatic, PERRLA, Mucous membr. moist/pink, EOMI, Sclerae nonicteric Neck: Supple, 2+ carotid pulse no bruit, No LAD, Without JVD or thyroid abnormality Respiratory: Clear to auscultation bilaterally, Normal air movement Cardiovascular: Regular rate/rhythm, Normal S1 S2 Gastrointestinal: Normal bowel sounds, No tenderness Musculoskeletal: No tenderness Integumentary: No rashes Neurological: Normal gait, Normal speech, Normal strength at 5/5 x4 extr, Normal tone, Normal affect, Other (Left facial droop-stable from previous cva) - Studies Laboratory Data (last 24 hrs) 07/10/22 00:56: PT 16.6 H, INR 1.51, APTT 35.1 07/10/22 00:56: WBC 8.50, Hgb 12.7 L, Hct 37.9 L, Plt Count 171 07/10/22 00:56: Sodium 139, Potassium 3.5, BUN 15, Creatinine 1.33 H, Glucose 143 H, Magnesium 2.0 <Segundo King - Last Filed: 07/10/22 03:15> - Studies Laboratory Data (last 24 hrs) 07/10/22 00:56: PT 16.6 H, INR 1.51, APTT 35.1 07/10/22 00:56: WBC 8.50, Hgb 12.7 L, Hct 37.9 L, Plt Count 171 07/10/22 00:56: Sodium 139, Potassium 3.5, BUN 15, Creatinine 1.33 H, Glucose 143 H, Magnesium 2.0 <Ethan Sylvester - Last Filed: 07/10/22 23:25> Assessment and Plan - Plan Assessment: Dizziness Bradycardia Atrial fibrillation on chronic anticoagulation therapy CAD status post CABG Hypertension Hyperlipidemia Plan: Dizziness: Suspect this is likely due to bradycardia, soft blood pressures hold metoprolol, amiodarone monitor telemetry.. Stroke alert was called given patient's previous CVA. Will rule out CVA obtain echocardiogram, MRI brain, carotid Doppler continue with neurochecks, neurology consult as well. Continue patient's Eliquis. Bradycardia: Patient currently asymptomatic, hold metoprolol, amiodarone for now. Monitor on telemetry. Heart rate between 45 and 50 currently blood pressure around 105 systolic. Patient denies chest pain. Atrial fibrillation on chronic anticoagulation therapy: Hold amiodarone, metoprolol, continue Eliquis. Currently is in sinus bradycardia. CAD status post CABG: Continue home meds, monitor on telemetry Hypertension: Hold metoprolol given bradycardia. Evaluate need for blood pressure medication during hospitalization. Hyperlipidemia: Continue atorvastatin. DVT PPX: Continue Eliquis Code status: Full Discharge Plan: Home Plan to discharge in: 24 Hours - Advance Directives Does patient have a Living Will: No Does patient have a Durable POA for Healthcare: No - Code Status/Comfort Care Code Status Assessed: Yes (full code) Critical Care: No Time Spent Managing Pts Care (In Minutes): 55 <Segundo King - Last Filed: 07/10/22 03:15> - Plan Patient seen and examined on rounds this morning Reports feeling better. HR improved but still borderline/low holding amio and metoprolol. Cardiology consulted for recommendations regarding medication changes stroke workup. MRI today Neuro consulted anticipate dc home tomorrow <Ethan Sylvester - Last Filed: 07/10/22 23:25>
[2022-07-10] MEDS: Ringers Lactate 1,000 ML IV SCH ×4 (03:35→21:02)
[2022-07-10] MEDS ORDERED: NA CHLORIDE 0.9% 1,000 ML IV SCH (03:35)
[2022-07-10] MEDS ORDERED: ONDANSETRON 4 MG/2 ML VIAL IV PRN (03:35)
[2022-07-10] MEDS ORDERED: Ringers Lactate 1,000 ML IV ONE (03:49)
[2022-07-10 03:54] VITALS: BMI 26.7
[2022-07-10 04:01] LABS: Urine Blood 1+ (Negative); Urine Glucose Negative (Negative); Urine Protein Negative (Negative)
[2022-07-10 04:29] LABS: Urine Bacteria None Seen /HPF (<20); Urine RBC <5 /HPF (None Seen)
[2022-07-10 05:19] LABS: Thyroid Stimulating Hormone 0.839 uIU/mL (0.358-3.740); Troponin High Sensitivity 28.4 pg/mL (<58.9)
[2022-07-10] MEDS: PANTOPRAZOLE 40MG TABLET PO SCH (06:30)
[2022-07-10] MEDS ORDERED: PANTOPRAZOLE 40MG TABLET PO ONE (07:00)
--- NOTE | 2022-07-10 07:33 | RAD REPORT ---
EXAM DESCRIPTION: US - CP - 07/10/2022 4:12 am CLINICAL HISTORY: Dizziness, previous cva COMPARISON: Hand Right 2 View dated 04/17/2022Neck Angio dated 07/10/2022 TECHNIQUE: Real-time sonographic evaluation of both carotid systems was performed. Doppler interroga tion was performed with waveform tracing bilaterally. FINDINGS: Normal high resistance waveforms are noted in both external carotid arteries. The common c arotid arteries and internal carotid arteries show normal low resistance waveforms. Soft plaque is present at both carotid bulbs. Peak systolic and end diastolic velocity values and the ICA/CCA ratios are in the non-hemodynamically significant range. Antegrade flow seen in both vertebral arteries. IMPRESSION: Soft plaque at both carotid bulbs. No evidence of a hemodynamically significant stenosis.
[2022-07-10] MEDS ORDERED: PNEUMOCOCCAL VACCINE 0.5 ML IMVAC ONE (08:00)
[2022-07-10] MEDS: APIXABAN 2.5 MG TABLET PO SCH ×2 (09:00→20:01)
[2022-07-10 14:29] VITALS: O2SAT 96
--- NOTE | 2022-07-10 14:43 | RAD REPORT ---
EXAM DESCRIPTION: MRI - Brain Wo Cont - 07/10/2022 2:25 pm CLINICAL HISTORY: Dizziness, previous cva COMPARISON: Ct Stroke Brain Wo Cont dated 07/10/2022 TECHNIQUE: Sagittal T1-weighted images were obtained along with axial PD, heavily T2-weighted and T2 -FLAIR images. Axial DWI and ADC mapping sequences were also obtained along with coronal heavily T2-w eighted images. FINDINGS: No intracranial hemorrhage, mass or acute infarction. There is no edema or shift of midlin e structures. No extra-axial fluid collections. A 5 centimeter area of encephalomalacia is present in the lateral right frontal lobe from prior CVA. There is a much smaller area of encephalomalacia in t he posteroinferior right occipital lobe. Atrophy changes are mild for age. Ventricles are in proporti on to the volume loss. No significant chronic ischemic change seen the cerebral white matter. No brai nstem thalamus, or basal ganglia chronic ischemic changes identified. Signal voids are seen as a norm al finding in the major intracranial vessels. No suspicious globe or orbital content finding. No sella or supra sella abnormality. Mastoid air cells and paranasal sinuses are clear. IMPRESSION: No acute or subacute infarction changes are present. Old right frontal and right occipital CVAs.
[2022-07-10] MEDS: QUETIAPINE 25 MG TAB PO SCH (20:01)
[2022-07-10] MEDS: ATORVASTATIN 20 MG TAB PO SCH (20:01)
--- NOTE | 2022-07-10 20:02 | CON ---
Reason For Consultation: Consultation called because of near syncope. History Of Present Illness: Mr. Stanford is an 82-year-old patient with atrial fibrillation, on lunchroom mother rand anticoagulation; coronary artery disease status post bypass grafting; stroke last year with resid ual left-sided weakness, his stroke affected the right frontal and right occipital regions in additio n to having hypertension. He comes to [facility] after he went to the toilet in the morning and got very lightheaded and felt as though he would pass out, became tachycardic. He was brought t o [facility], found to be mildly dehydrated. Creatinine 1.33. He did have his baseline lef t-sided weakness. However, his heart rate was found to be between 135 and 140 and systolic blood pre ssure in the 90s. Once he received IV fluids and his beta enid actually was held, he did show georgina e sign of improvement in his cardiac functioning, but the EKG showed sinus bradycardia with first-deg ree block. His cardiac rule out was negative for troponins indicating no myocardial infarction. Bra in MRI stroke protocol was negative for any acute ischemic or hemorrhagic changes, but the right fron wesley and right occipital chronic strokes were identified. Carotid artery ultrasound showed soft plaqu e in both carotid bulbs with no evidence of hemodynamically significant stenosis. His medications we re adjusted and include Eliquis 2.5 mg twice a day, Lipitor 20 mg daily, Protonix 40 mg daily, and Se roquel 25 mg at bedtime. He was admitted for continued observation and again to rule out stroke. Past Medical History: Atrial fibrillation treated with Eliquis, coronary artery disease status post bypass grafting in 2009, stroke in mid 2021 with residual left facial weakness and leg weakness, hype rtension, and dyslipidemia. Past Surgical History: Coronary artery bypass grafting, cholecystectomy, appendectomy, and bilateral knee replacement. Social History: The patient lives alone at home. No alcohol, tobacco, or IV drug use. Family History: Diabetes in mother. Cancer in brother and father. Review of Systems: Episodes of lightheadedness and mild vertigo on standing with low blood pressure and pulse. Otherwis e, negative on a 10 point systems review aside from the weakness in his left face and leg. Physical Examination: Vital Signs: Blood pressure 153/46, pulse 59, respiratory rate 16, temperature 97.8, and oxygen satu ration 98%. Weight 175 pounds, height 5 feet 8 inches, BMI 26. General: Mr. Stanford is resting comfortably in the emergency room bed. HEENT: He is normocephalic, atraumatic. Sclerae anicteric. Oropharynx is pink and moist. Neck: Supple. Chest: Clear. Heart: Regular. Extremities: No significant edema, clubbing, or cyanosis. Neurologic: Mild decreased left nasolabial fold with good excursions bilaterally. Left hand, 4/5 howell nd filer metal patterns strength and leg 4/5. On the right upper and lower extremities, 5/5 proximally and distally. On sensory exam, slight decrease to light touch and temperature on the left compared to the right u pper and lower extremities and the face. Coordination is slow, but intact in upper and lower extremi ties. Reflexes with more brisk reflexes on the left compared to the right upper and lower extremitie s. In terms of gait, he is able to ambulate 250 feet, holding onto the IV pole. He did require the IV pole to maintain balance and refused to use a walker. It is noted by the therapist that he would be a good candidate for physical and occupational therapy. Please note, his NIH Stroke Scale at time of admission was 2. Assessment: Mr. Stanford is an 82-year-old patient with chronic strokes affecting the right frontal and occipital regions, possibly related to events of the heart, atrial fibrillation, more likely. At this point, he continues to have multiple additional stroke risk factors including dyslipidemia, cor onary artery disease status post stent placement, and dyslipidemia. He is ambulating well, but still requires an assistive device and would likely benefit from some aggressive inpatient rehabilitation. Plan: 1.As noted, he would be a good candidate for inpatient rehabilitation to help with his coordination, balance, gait, and decrease his risk of falling and to manage his comorbid conditions including his atrial fibrillation to further reduce stroke risk. 2.He should continue with aggressive management of hypertension and dyslipidemia. LB/MODL Voice ID: [id number] Report ID: [id number]
--- NOTE | 2022-07-10 20:23 | CON ---
Date of Consultation: 07/10/2022 Reason For Consultation: Dizziness. History Of Present Illness: An 82-year-old male who comes in with dizziness. He has history of atri al fibrillation, coronary artery disease, status post CABG, CVA, dyslipidemia, hypertension, presente d with dizziness, lightheaded, almost fell and there was no documentation about his blood pressure wh en the ambulance arrived. There was no specific neurological or focal deficits. Denies having any c hest pain dizziness/lightheadedness. Past Medical History: As outlined above in the HPI. Medications: Refer to reconciliation sheet for detailed the list. Allergies: NO KNOWN DRUG ALLERGIES. Family History: No premature coronary artery disease or cancer. Social History: He does not smoke or drink. Does not use any drugs. Review of Systems: All systems reviewed. They are negative except as mentioned in HPI. Physical Examination: Vital Signs: Temperature is 97.8, pulse 59, breathing at 18, blood pressure 153/47, saturating 98% o n room air. General: Pleasant, elderly male, in no apparent distress. Head and Neck: Pupils are equal, reactive to light. Intact eye movements. No JVD. No cervical lymp hadenopathy. Neck supple. Thyroid is not enlarged. Lungs: Clear to auscultation bilaterally. No rhonchi, wheezing, or crackles. No accessory muscle u se. Heart: Regular rate and rhythm. No extra sounds. Abdomen: Soft, nontender. Bowel sounds positive. No organomegaly. No masses or hernia. No rigidi ty or rebound. Extremities: No edema, clubbing, cyanosis. Intact pulses. Skin: No rash. Neurologic: Alert, awake, oriented x3. No acute focal deficits appreciated. Investigations: BUN 15, creatinine 1.33, and hemoglobin is 12.7 and troponin are negative at 3 sets. Assessment/recommendation: 1.Dizziness, likely due to dehydration. The patient is having a stroke workup. Will wait on the re sults of MRI. Recommend gentle IV fluids and if MRI is negative, patient to be released and follow u p as an outpatient. 2.Atrial fibrillation. The patient is in sinus rhythm right now and he was on amiodarone and beta-b locker, both are on hold. Continue Eliquis and resume beta enid at the low dose once his heart ra te is above 60. 3.Dyslipidemia. Continue statin. 4.Acute renal failure due to dehydration. Recommend gentle IV fluid management and repeat labs in t he morning. SR/MODL Voice ID: [id number] Report ID: [id number]
[2022-07-11 03:34] LABS: Absolute Lymphocytes (CBC) 1.7 K/uL (0.7-4.9); Lymphocytes % 26.2 % (15.3-44.8); MCV 90.3 fL (80-100); MPV 8.1 fL (7.6-11.3)
[2022-07-11 03:54] LABS: Albumin 3.1 g/dL (3.4-5.0); Bilirubin Total 1.2 mg/dL (0.2-1.0); Potassium 3.6 mmol/L (3.5-5.1); Protein, Total 6.1 g/dL (6.4-8.2)
[2022-07-11] MEDS: PANTOPRAZOLE 40MG TABLET PO SCH (07:09)
[2022-07-11] MEDS ORDERED: POTASSIUM CL SA 10 MEQ TAB PO ONE (09:00)
[2022-07-11] MEDS: APIXABAN 2.5 MG TABLET PO SCH ×2 (09:02→20:00)
[2022-07-11] MEDS: Ringers Lactate 1,000 ML IV SCH (10:22)
--- NOTE | 2022-07-11 13:40 | RAD REPORT ---
EXAM DESCRIPTION: CT - Neck Angio - 07/10/2022 3:06 am CLINICAL HISTORY: 82 years, Male, dizziness COMPARISON: Recent CT scan of the head performed . TECHNIQUE: Multiple transaxial tomograms from the aortic arch through the brain were performed after administration of large bolus of IV contrast for complete opacification of the carotid arteries and intracranial vessels. Subsequent 2-D and 3-D multiplanar reformats, volume rendering technique and maximum intensity projec tion images were generated and reviewed. Stenosis measurements were performed according to NASCET italo gordillo. CAROTID STENOSIS REFERENCE USING NASCET CRITERIA: % ICA stenosis = (1 - narrowest ICA diameter/diameter of distal cervical ICA) x 100. Mild - <50% stenosis. Moderate - 50-69% stenosis. Severe - 70-94% stenosis. Near occlusion - 95-99% stenosis. Occluded - 100% stenosis. This exam was performed according to our departmental dose-optimization protocol, which includes auto mated exposure control, adjustment of the mA and/or kV according to patient size and/or use of iterat devin reconstruction technique. FINDINGS: Ascending aorta: There is a normal branching pattern of the great vessels off the arch. No great vessel origin stenosis is identified. Minimal intimal aortic arch calcification. There are c odominant vertebral arteries which demonstrate normal opacification. Right carotid artery: Normal opacification is demonstrated within the right common carotid artery a nd at the carotid bifurcation. The right carotid bulb demonstrate to be within normal limits. There i s no evidence for significant stenosis. The proximal, mid and distal portions of the right internal c arotid artery demonstrate to be patent. There is no evidence for significant stenosis and/or occlusio n. Left carotid artery: Normal opacification is demonstrated within the left common carotid artery an d at the carotid bifurcation. The left carotid bulb demonstrate to be within normal limits. There is no evidence for significant stenosis. The proximal, mid and distal portions of the left internal sánchez tid artery demonstrate to be patent. There is no evidence for significant stenosis and/or occlusion. Intracranial circulation: Intracranial portions of the internal carotid arteries the cavernous sinus portions demonstrates circumferential atheromatous plaque with 40-50% caliber narrowing especially al jania the left side. There is hypoplastic left A1 segment with normal patency of the anterior comment a gain system. Otherwise the anterior cerebral arteries, middle cerebral arteries and its branches demo nstrate normal opacification with no evidence for significant stenosis aneurysm and/or occlusion. The re is normal venous drainage with no evidence for significant sinus vein thrombosis. Vertebrobasilar system: The posterior circulation demonstrate codominant bilateral vertebral arteries with no evidence for significant stenosis and/or evidence for significant dissection. The vertebroba silar system and [employer] W[employer]OCIATE demonstrate to be normal with no evidence for aneurysm and/or occlusion. Grossly the brain parenchyma demonstrate mild brain atrophy with the minimal. Fecal matter changes. A gain there is a focus of encephalomalacia within the right frontal lobe and occipital corresponding t o old focus of infarction. No evidence for abnormal parenchymal enhancement. The skull base and intracranial structures demonstrate to be within normal limits. Lung apex: No gross abnormalities are noted within the apices. IMPRESSION: No evidence for significant stenosis and/or occlusion involving the cervical carotid or vertebral arteries. 40-50% caliber narrowing of the cavernous sinus portions of the internal carotid arteries especially along the left side. Hypoplastic left A1 segment with normal patency of the anterior communicating again system. No evidence for significant stenosis and/or occlusion of the intracranial circulation. Old focus of infarction within the right frontal and occipital lobe. Electronically signed by: Artemio Batres MD 07/10/2022 2:33 AM SUPERVISOR BOILERMAKING SHOP Due to temporary technical issues with the PACS/Fluency reporting system, reports are being signed by the in house radiologists without review as a courtesy to insure prompt reporting. The interpreting radiologist is fully responsible for the content of the report.
--- NOTE | 2022-07-11 13:48 | RAD REPORT ---
EXAM DESCRIPTION: CT - Head angio - 07/10/2022 3:05 am CLINICAL HISTORY: 82 years, Male, dizziness COMPARISON: Recent CT scan of the head performed . TECHNIQUE: Multiple transaxial tomograms from the aortic arch through the brain were performed after administration of large bolus of IV contrast for complete opacification of the carotid arteries and intracranial vessels. Subsequent 2-D and 3-D multiplanar reformats, volume rendering technique and maximum intensity projec tion images were generated and reviewed. Stenosis measurements were performed according to NASCET italo gordillo. CAROTID STENOSIS REFERENCE USING NASCET CRITERIA: % ICA stenosis = (1 - narrowest ICA diameter/diameter of distal cervical ICA) x 100. Mild - <50% stenosis. Moderate - 50-69% stenosis. Severe - 70-94% stenosis. Near occlusion - 95-99% stenosis. Occluded - 100% stenosis. This exam was performed according to our departmental dose-optimization protocol, which includes auto mated exposure control, adjustment of the mA and/or kV according to patient size and/or use of iterat devin reconstruction technique. FINDINGS: Ascending aorta: There is a normal branching pattern of the great vessels off the arch. No great vessel origin stenosis is identified. Minimal intimal aortic arch calcification. There are c odominant vertebral arteries which demonstrate normal opacification. Right carotid artery: Normal opacification is demonstrated within the right common carotid artery a nd at the carotid bifurcation. The right carotid bulb demonstrate to be within normal limits. There i s no evidence for significant stenosis. The proximal, mid and distal portions of the right internal c arotid artery demonstrate to be patent. There is no evidence for significant stenosis and/or occlusio n. Left carotid artery: Normal opacification is demonstrated within the left common carotid artery an d at the carotid bifurcation. The left carotid bulb demonstrate to be within normal limits. There is no evidence for significant stenosis. The proximal, mid and distal portions of the left internal sánchez tid artery demonstrate to be patent. There is no evidence for significant stenosis and/or occlusion. Intracranial circulation: Intracranial portions of the internal carotid arteries the cavernous sinus portions demonstrates circumferential atheromatous plaque with 40-50% caliber narrowing especially al jania the left side. There is hypoplastic left A1 segment with normal patency of the anterior comment a gain system. Otherwise the anterior cerebral arteries, middle cerebral arteries and its branches demo nstrate normal opacification with no evidence for significant stenosis aneurysm and/or occlusion. The re is normal venous drainage with no evidence for significant sinus vein thrombosis. Vertebrobasilar system: The posterior circulation demonstrate codominant bilateral vertebral arteries with no evidence for significant stenosis and/or evidence for significant dissection. The vertebroba silar system and [employer]DI[employer] BLANK[employer] WEAVER demonstrate to be normal with no evidence for aneurysm and/or occlusion. Grossly the brain parenchyma demonstrate mild brain atrophy with the minimal. Fecal matter changes. A gain there is a focus of encephalomalacia within the right frontal lobe and occipital corresponding t o old focus of infarction. No evidence for abnormal parenchymal enhancement. The skull base and intracranial structures demonstrate to be within normal limits. Lung apex: No gross abnormalities are noted within the apices. IMPRESSION: No evidence for significant stenosis and/or occlusion involving the cervical carotid or vertebral arteries. 40-50% caliber narrowing of the cavernous sinus portions of the internal carotid arteries especially along the left side. Hypoplastic left A1 segment with normal patency of the anterior communicating again system. No evidence for significant stenosis and/or occlusion of the intracranial circulation. Old focus of infarction within the right frontal and occipital lobe. Electronically signed by: Artemio Batres MD 07/10/2022 2:33 AM PROP AND EFFECTS DESIGNER Due to temporary technical issues with the PACS/Fluency reporting system, reports are being signed by the in house radiologists without review as a courtesy to insure prompt reporting. The interpreting radiologist is fully responsible for the content of the report.
--- NOTE | 2022-07-11 13:51 | RAD REPORT ---
EXAM DESCRIPTION: RAD - Chest Single View - 07/10/2022 1:01 am CLINICAL HISTORY: Dizziness COMPARISON: None. FINDINGS: Single frontal radiograph view of the chest. Cardiomediastinal silhouette: Prior median sternotomy. Cardiomegaly. Leads overlie the chest. Lungs: No consolidation, pneumothorax, or pleural effusion. Bones: Degenerative change of the spine and shoulders. Upper abdomen: No abnormality identified. IMPRESSION: 1. No acute pneumonic process identified. Cardiomegaly. Electronically signed by: Ji Reyna 07/10/2022 1:12 AM VP PRODUCT MANAGEMENT Due to temporary technical issues with the PACS/Fluency reporting system, reports are being signed by the in house radiologists without review as a courtesy to insure prompt reporting. The interpreting radiologist is fully responsible for the content of the report.
--- NOTE | 2022-07-11 13:57 | RAD REPORT ---
EXAM DESCRIPTION: CT - Ct Stroke Brain Wo Cont - 07/10/2022 1:26 am ADDENDUM #1 Urgent finding reported to Jonathan VALDES at 07/10/2022 1: 15 AM CSTElectr onically signed by: Ji Reyna 07/10/2022 6:12 AM BUILDING COORDINATOR End of Addendum EXAM DESCRIPTION: CT of the head without contrast CLINICAL HISTORY: Dizziness COMPARISON: None available TECHNIQUE: Axial CT of the head obtained from the skull apex to the skull base without contrast. Thi s exam was performed according to our departmental dose-optimization program, which includes automate d exposure control, adjustment of the mA and/or kV according to patient size and/or use of iterative reconstruction technique. FINDINGS: No acute intracranial hemorrhage identified. No mass, mass effect, shift of the midline, a bnormal extra-axial fluid collection or CT evidence of acute ischemic change identified. The ventricu lar system and sulcal spaces are mildly enlarged compatible with mild cerebral atrophy. Scattered a reas of hypodensity throughout the supratentorial white matter are nonspecific and may be related to chronic small vessel ischemic change. Right frontal and right occipital encephalomalacia compatible w ith remote infarctions. The visualized paranasal sinuses and mastoid air cells are well aerated. No skull fracture identified. Visualized orbits and globes are unremarkable. Atherosclerotic calcificat ion of the intracranial internal carotid and vertebral arteries. IMPRESSION: 1. No acute intracranial abnormality by CT criteria. Electronically signed by: Ji Reyna 07/10/2022 1:12 AM BUILDING COORDINATOR Due to temporary technical issues with the PACS/Fluency reporting system, reports are being signed by the in house radiologists without review as a courtesy to insure prompt reporting. The interpreting radiologist is fully responsible for the content of the report.
[2022-07-11] MEDS: AMIODARONE HCL 200 MG TAB PO SCH (16:29)
--- NOTE | 2022-07-11 17:41 | EKG ---
Test Date: 2022-07-10 Test Time: 00:52:49 Branch Officer: MACKENZIE MEASUREMENT RESULTS: Intervals: Rate: 53 WV: 238 QRSD: 82 QT: 466 QTc: 437 [place]: P: 48 WV: 238 QRS: 44 T: 65 INTERPRETIVE STATEMENTS: Sinus bradycardia with 1st degree AV block Nonspecific ST abnormality Abnormal ECG No previous ECG available for comparison Electronically Signed On 07-11-22 17:39:54 DAM OPERATOR by Sammy Schwartz
[2022-07-11] MEDS: QUETIAPINE 25 MG TAB PO SCH (20:00)
[2022-07-11] MEDS: ATORVASTATIN 20 MG TAB PO SCH (20:00)
--- NOTE | 2022-07-11 20:50 | P.PN ---
Date of Service: 07/11/22 Subjective: BP improved, slightly dizzy this morning HR slightly improved, but still bradycardic in 40s-50s ROS: A complete review of systems was performed and is negative except as mentioned above Physical Exam: Gen: NAD, AOx3 HEENT: normal conjunctiva, sclera anicteric CV: bradycardia, no murmur, no edema Pulm: non-labored respirations, clear bilaterally Abd: soft, non-tender, non-distended Neuro: normal speech, normal affect, moves all extremities with 5/5 str vitals reviewed Problem List Dizziness Bradycardia Atrial fibrillation on chronic anticoagulation therapy first degree heart block CAD status post CABG Hypertension Hyperlipidemia prior CVA symptoms secondary to bradycardia/hypotension exacerbated by beta enid and amiodarone Stroke alert CT and MRI negative for acute CVA carotids ok neuro consulted symptoms improving, but still bradycardic PT consulted check orthostatics cardiology consulted hold beta-enid, restart amio, monitor on telemetry overnight to ensure no arrhythmia, repeat EKG in am, monitor QTc, [place] interval if dc'd holding all meds would bounce back in afib with rvr most likely confirm all home meds VTE: eliquis Code: full Dispo: home, ~1 day
--- NOTE | 2022-07-11 23:28 | PN ---
Date of Progress Note: 07/11/2022 Subjective: Seen by bedside, doing well. His heart rate is improving slowly. No further dizziness or syncopal episodes. Review of Systems: No chest pain, shortness of breath, orthopnea, cough. No nausea, vomiting, diarrhea. All other syst ems reviewed are negative. Physical Examination: Vital Signs: Temperature is 97.7, pulse 53, breathing at 16, blood pressure 173/82, saturating 95% o n room air. General: Pleasant, elderly male, in no apparent distress. Head and Neck: Pupils are equal, reactive to light. Intact eye movements. No JVD. No cervical lym phadenopathy. Neck: Supple. Thyroid is not enlarged. Lungs: Clear to auscultation bilaterally. No rhonchi, wheezing, or crackles. No accessory muscle u se. Heart: Regular rate and rhythm. No extra sounds. Abdomen: Soft, nontender. Bowel sounds positive. No organomegaly. No masses or hernia. No rigidi ty or rebound. Extremities: No edema, clubbing, or cyanosis. Intact pulses. Skin: No rash. Neuro: Alert, awake, oriented x3. No acute focal deficits appreciated. Investigations: Troponin x3 are negative. BUN 10, creatinine 1.06, and hemoglobin 12.5. Assessment/recommendations: 1.Severe bradycardia, likely medication induced. The patient is known to have paroxysmal atrial fib rillation. At this point, recommend to reintroduce amiodarone 200 mg daily, keep him overnight 24 ho urs and monitor his heart rate. If his heart rate stabilizes on this, then we will plan for discharg e within next 24 hours and keep him off the beta-enid. 2.Near syncope due to bradycardia, medication use. Plan as above. SR/MODL Voice ID: [id number] Report ID: [id number]
[2022-07-12 03:16] LABS: Absolute Lymphocytes (CBC) 1.6 K/uL (0.7-4.9); Lymphocytes % 31.9 % (15.3-44.8); MCV 89.8 fL (80-100); MPV 7.6 fL (7.6-11.3); RBC Red Blood Cell Count 4.13 M/uL (4.33-5.43)
[2022-07-12 03:52] LABS: Sodium Level 143 mmol/L (136-145)
[2022-07-12 03:53] LABS: ALT/SGPT 17 U/L (16-61); AST/SGOT 9 U/L (15-37); Alkaline Phosphatase 56 U/L (45-117); BUN Blood Urea Nitrogen 8 mg/dL (7-18); Bicarbonate 30 mmol/L (21-32); Bilirubin Total 1.2 mg/dL (0.2-1.0); Glomerular Filtration Rate 77 ml/min (=/>90); Glucose Level 89 mg/dL (74-106); Potassium 3.3 mmol/L (3.5-5.1)
[2022-07-12 03:54] LABS: Protein, Total 6.1 g/dL (6.4-8.2)
[2022-07-12] MEDS: Ringers Lactate 1,000 ML IV SCH (04:04)
[2022-07-12] MEDS: PANTOPRAZOLE 40MG TABLET PO SCH (06:37)
[2022-07-12] MEDS: APIXABAN 2.5 MG TABLET PO SCH (08:23)
[2022-07-12] MEDS: AMIODARONE HCL 200 MG TAB PO SCH (08:23)
[2022-07-12] MEDS ORDERED: POTASSIUM CL SA 10 MEQ TAB PO ONE (09:00)
[2022-07-12 12:03] VITALS: BP 161/75; TEMP 97.9
--- NOTE | 2022-07-12 15:44 | P.DS ---
Admission Date: 07/10/22 Discharge Date: 07/12/22 Primary Care Provider: Dr. 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 He was given IV fluids and his beta-enid and amiodarone were held. Patient was noted to have some left-sided weakness, which is residual from his prior stroke. However stroke cannot be ruled out on initial presentation, so patient went underwent work-up. CT and MRI were negative for any acute process/no stroke. MRI did notes his old/prior stroke. Patient's symptoms resolved. Cardiology was consulted for recommendations of his medications. EKG did note mildly prolonged RI interval. He was restarted on his amiodarone 200 mg daily, and his beta-enid was held. His heart rate maintained in the 50s, he remained asymptomatic, and he was deemed stable for discharge home. Is to have close follow-up with cardiology, heart rate increases and blood pressure remained stable, will likely restart beta-enid in the office on follow-up. Counseled on maintain adequate hydration. Follow-up: Cardiology - Dr. Schwartz in the office this week. On further discussion it appeared that patient was taking both metoprolol and carvedilol, which will definitely contribute to bradycardia and hypotension. Advised should not be taking both at the same time. For now, Cardiology recommend stopping both of them. Continue amiodarone as previously prescribed. Vital Signs/Physical Exam: Temp Pulse Resp BP Pulse Ox 97.9 F 62 18 161/75 H 95 07/12/22 12:00 07/12/22 12:00 07/12/22 12:00 07/12/22 12:00 07/12/22 12:00 Physical Exam: Gen: NAD, AOx3 HEENT: normal conjunctiva, sclera anicteric CV: regular rate/rhythm, no edema Pulm: non-labored respirations, clear bilaterally Abd: soft, non-tender, non-distended Neuro: normal speech, normal affect, moves all extremities with 5/5 str Laboratory Data at Discharge: WBC 4.90 K/uL (4.3-10.9) 07/12/22 03:06 Hgb 12.5 g/dL (13.6-17.9) L 07/12/22 03:06 Hct 37.0 % (39.6-49.0) L 07/12/22 03:06 Plt Count 177 K/uL (152-406) 07/12/22 03:06 PT 16.6 SECONDS (9.5-12.5) H 07/10/22 00:56 INR 1.51 07/10/22 00:56 APTT 35.1 SECONDS (24.3-36.9) 07/10/22 00:56 Sodium 143 mmol/L (136-145) 07/12/22 03:06 Potassium 3.3 mmol/L (3.5-5.1) L 07/12/22 03:06 BUN 8 mg/dL (7-18) 07/12/22 03:06 Creatinine 0.98 mg/dL (0.70-1.30) 07/12/22 03:06 Glucose 89 mg/dL (74-106) 07/12/22 03:06 Magnesium 2.0 07/12/22 03:06 Total Bilirubin 1.2 mg/dL (0.2-1.0) H 07/12/22 03:06 AST 9 U/L (15-37) L 07/12/22 03:06 ALT 17 U/L (16-61) 07/12/22 03:06 Alkaline Phosphatase 56 U/L (45-117) 07/12/22 03:06 Physician Discharge Instructions: Patient presented with dizziness, found to be bradycardic and hypotensive in the ED. He was given IV fluids and his beta-enid and amiodarone were held. Patient was noted to have some left-sided weakness, which is residual from his prior stroke. However stroke cannot be ruled out on initial presentation, so patient went underwent work-up. CT and MRI were negative for any acute process/no stroke. MRI did notes his old/prior stroke. Patient's symptoms resolved. Cardiology was consulted for recommendations of his medications. EKG did note mildly prolonged RI interval. He was restarted on his amiodarone 200 mg daily, and his beta-enid was held. His heart rate maintained in the 50s, he remained asymptomatic, and he was deemed stable for discharge home. Is to have close follow-up with cardiology, heart rate increases and blood pressure remained stable, will likely restart beta-enid in the office on follow-up. Counseled on maintain adequate hydration. Follow-up: Cardiology - Dr. Schwartz in the office this week. On further discussion it appeared that patient was taking both metoprolol and carvedilol, which will definitely contribute to bradycardia and hypotension. Advised should not be taking both at the same time. For now, Cardiology recommend stopping both of them. Continue amiodarone as previously prescribed. Followup: Sammy Schwartz MD [ACTIVE - CAN ADMIT] - 1 Week (call for appointment.) Unknown,U [Primary Care Provider] - 1-2 Weeks (call for appointment.) Time spent managing pt's care (in minutes): 45
--- NOTE | 2022-07-12 20:52 | PN ---
Date of Progress Note: 07/12/2022 Subjective: Seen at bedside, doing clinically well. Tolerated amiodarone very well. Review of Systems: No chest pain, shortness of breath, orthopnea, cough, nausea, vomiting, diarrhea. All other systems reviewed and they were negative except what is mentioned in HPI. Physical Examination: Vital Signs: Temperature is 97.9, pulse 62, breathing at 18, blood pressure 161/75, saturating 95% o n room air. General: Pleasant elderly male, in no distress. Head and Neck: Pupils are equal, reactive to light. Intact eye movements. No JVD. No cervical lym phadenopathy. Neck is supple. Thyroid is not enlarged. Lungs: Clear to auscultation bilaterally. No rhonchi, rales, or crackles. No accessory muscle use. Heart: Regular rate and rhythm. No extra sounds. Abdomen: Soft, nontender. Bowel sounds positive. No organomegaly. No masses or hernia. No rigidi ty or rebound. Extremities: No edema, clubbing, cyanosis. Intact pulses. Skin: No rashes. Neurological: Alert, awake, and oriented x3. No acute deficits appreciated. Investigations: BUN is 8, creatinine 0.98, and hemoglobin is 12.5. Assessment And Recommendations: 1.Symptomatic severe bradycardia due to over medication. Amiodarone was re-introduced, and the rolando ent's heart rate remained stable. Discontinue beta blockers. Patient from Cardiology standpoint, ca n be released. Follow up in the office in 1 week. 2.Atrial fibrillation, converted to sinus. Resume amiodarone, and the patient can be discharged. T o follow up as an outpatient. SR/MODL Voice ID: [id number] Report ID: [id number]
--- NOTE | 2022-07-13 06:42 | ECHO ---
HEIGHT: 5 ft 8 in WEIGHT: 175 lb 15.92 oz DATE OF STUDY: 07/10/[address]: Segundo King NP 2-DIMENSIONAL: YES M.MODE: YES DOPPLER: YES COLOR FLOW: YES TDS: PORTABLE: YES DEFINITY: BUBBLE STUDY: DIAGNOSIS: DIZZINESS, PREVIOUS CEREBRAL VASCULAR ACCIDENT CARDIAC HISTORY: CATHERIZATION: YES SURGERY: YES PROSTHETIC VALVE: NO PACEMAKER: NO MEASUREMENTS (cm) DIASTOLIC (NORMALS) SYSTOLIC (NORMALS) IVSd 0.9 (0.6-1.2) LA Diam 3.6 (1.9-4.0) LVEF 69% LVIDd 5.3 (3.5-5.7) LVIDs 3.2 (2.0-3.5) %FS 39% LVPWd 1.0 (0.6-1.2) Ao Diam 2.9 (2.0-3.7) 2 DIMENSIONAL ASSESSMENT: RIGHT ATRIUM: NORMAL LEFT ATRIUM: NORMAL RIGHT VENTRICLE: NORMAL LEFT VENTRICLE: NORMAL TRICUSPID VALVE: MILD TRICUSPID REGURGITATION MITRAL VALVE: MILD MITRAL REGURGITATION PULMONIC VALVE: MILD PULMONIC INSUFFICIENCY AORTIC VALVE: NORMAL PERICARDIAL EFFUSION: NONE AORTIC ROOT: NORMAL LEFT VENTRICULAR WALL MOTION: NORMAL DOPPLER/COLOR FLOW: SEE BELOW COMMENTS: 1. NORMAL LEFT VENTRICULAR EJECTION FRACTION 60-65% 2. NORMAL WALL MOTION 3. MILD MITRAL REGURGITATION, TRICUPSID REGURGITATION, PULMONIC INSUFFICIENCY TECHNOLOGIST: ROSE DELATORRE
--- NOTE | 2022-07-13 16:32 | EKG ---
Test Date: 2022-07-11 Test Time: 11:24:38 Transplant Coordinator: , MEASUREMENT RESULTS: Intervals: Rate: 57 FL: 238 QRSD: 84 QT: 424 QTc: 412 Arma: P: 16 FL: 238 QRS: -2 T: 35 INTERPRETIVE STATEMENTS: Sinus bradycardia with 1st degree AV block Septal infarct, age undetermined Abnormal ECG Compared to ECG 07/10/2022 00:52:49 Myocardial infarct finding now present ST (T wave) deviation no longer present Electronically Signed On 07-13-22 16:28:28 [employer]ACHINE [employer] by Sammy Schwartz
== END 2022-07-12 14:00 | disposition home or self-care (01) ==
LOC: ER 00:28 → ERHOLD 02:51 → 4TH 13:46
PROVIDERS: ADMIT Hospitalist; ATTEND Hospitalist
DX: R00.1 Bradycardia, unspecified (principal); T50.905A Adverse effect of unspecified drugs, medicaments and biological substances, initial encounter; E86.0 Dehydration; I25.10 Atherosclerotic heart disease of native coronary artery without angina pectoris; I95.9 Hypotension, unspecified; I44.0 Atrioventricular block, first degree; R55 Syncope and collapse; I48.11 Longstanding persistent atrial fibrillation; I10 Essential (primary) hypertension; E78.5 Hyperlipidemia, unspecified; N17.9 Acute kidney failure, unspecified; Z86.73 Personal history of transient ischemic attack (TIA), and cerebral infarction without residual deficits; Z95.1 Presence of aortocoronary bypass graft; Z79.01 Long term (current) use of anticoagulants; Z20.822 Contact with and (suspected) exposure to COVID-19
CPT/HCPCS: 96361; 93005; 93306; 85025 ×3; 80048; 36415 ×2; 83735 ×4; 85610; 82947; 85730; 84443; 84484 ×3; 84439; 80053 ×2; 70496; 70498; 70450; 71045; 93880; 70551; 97535; 92507; 92523; 97116 ×2; 97161; 97165; 96374; 99285; 87811; Q9967; J8597; J7120 ×5; J7040 ×2; 81003; 81015; G0378